=== PATIENT | male | born 1980 | race Caucasian/White ===

== ENCOUNTER 2019-04-22 07:36 | Day surgery (SDC) | payer BC ==
[2019-04-19 09:04] VITALS: BMI 32.2
[~2019-04-22 07:36] MED LIST: LACTATED RINGERS 1,000 ML IV SCH
[2019-04-22] MEDS ORDERED: LIDOCAINE 1% 20 ML VIAL (10MG/ML) FOR IV START INTRADERMA ONE (08:06)
[2019-04-22 08:08] VITALS: TEMP 97.3
[2019-04-22] MEDS ORDERED: PROPOFOL 10 MG/ML 20 ML VIAL IV ONE (08:30)
[2019-04-22] MEDS ORDERED: LIDOCAINE 1% INJ 10MG/ML (20 ML MDV) ONE (08:30)
--- NOTE | 2019-04-22 09:06 | P.PCN ---
Date of Procedure: 04/22/19 Description of Procedure: BRIEF HISTORY: 38-year-old male diagnosed with Crohn's disease at the age of [age] years old. Currently not on any medical treatment. He is requiring no surgeries in the past. Last colonoscopy was approximately in 2009. He reports currently 2 bowel movements on his continuous up to 8 bowel movements on his back disease. No blood per rectum reported. He does report abdominal pain. PROCEDURE PERFORMED: Colonoscopy . PREOPERATIVE DIAGNOSIS: Crohn's disease, last colonoscopy 2009. ESTIMATED BLOOD LOSS: Minimal. IV sedation per Anesthesia. PROCEDURE: After informed consent was obtained, the patient, was brought into the endoscopy unit. IV sedation was administered by Anesthesia under continuous monitoring. Digital rectal examination was normal. Initially the Olympus CF-190 flexible video colonoscope was then inserted in the rectum, gradually advanced into the cecum without any difficulty. Careful examination was performed as the scope was gradually being withdrawn. Ileocecal valve and the appendiceal orifice were visualized and appeared normal. Prep was excellent. A few small scattered sigmoid diverticula were noted. The patient had erythema with superficial ulcerations found from the descending colon to the cecum with mild colitis in the right colon and more [id number] colitis in the left colon. Terminal ileum was intubated and appeared normal. Random biopsies were taken from 80 cm to 10 cm from the anal verge. Retroflexion was performed in the rectum and no lesions were seen. The patient tolerated the procedure well. IMPRESSION: Mild to moderate chronic colitis noted from the ascending colon to the cecum. Random biopsies taken from 80 cm from the anal verge to 10 cm from the anal verge. Normal appearing terminal ileum, biopsied. Few small sigmoid diverticula. RECOMMENDATIONS: Findings of this examination were discussed with the patient in his father. Okay to resume diet. Await pathology from biopsies. Patient should follow-up with gastroenterology in 3-4 weeks. We'll start patient on steroid taper at t his time. Repeat colonoscopy in 2 years given history of Crohn's disease.
[2019-04-22 09:23] VITALS: BP 131/90; PULSE 74; RESP 18
== END 2019-04-22 09:53 | disposition home or self-care (01) ==
LOC: ORWHC2ENDO 07:36
PROVIDERS: ATTEND Internal Medicine
DX: K51.90 Ulcerative colitis, unspecified, without complications (principal); K50.90 Crohn's disease, unspecified, without complications; Z84.89 Family history of other specified conditions; Z88.5 Allergy status to narcotic agent
CPT/HCPCS: 88305; 45380; J2001; J2704

== ENCOUNTER 2023-07-13 12:25 | Emergency (ER) | payer BC ==
--- NOTE | 2023-07-13 13:46 | ED ---
Eye Problem HPI - General Source: patient, RN notes reviewed Mode of arrival: ambulatory Limitations: no limitations <Miguel Villasenor - Last Filed: 07/13/23 13:44> <Charles Arevalo - Last Filed: 07/13/23 14:22> - General Chief complaint: Eye Problems Stated complaint: right eye infection Time Seen by Provider: 07/13/23 13:44 - History of Present Illness Initial comments: 42-year-old male presents emergency Department with chief complaint of right eye problems. Patient states she started with some drainage and redness she was given ointment. He states he lost ointment follow-up PCP was placed on oral antibiotics is advised to come emergency Department if he did not have improvement after 48 hours. He states he was feeling better yesterday but worse this morning he did have initially of some crusting and drainage but that has resolved he states he has some discomfort with movement of his eyeand changes in vision (Miguel Villasenor) - Related Data Previous Rx's Medication Instructions Recorded Erythromycin Ophth Oint [Romycin 1 applic RIGHT EYE QID #3.5 gm 07/13/23 Ophth Oint] Sulfamethox-Tmp 800-160Mg [Bactrim 1 tab PO Q12HR 7 Days #14 tab 07/13/23 DS 800-160 mg] Allergies Allergy/AdvReac Type Severity Reaction Status Date / Time codeine Allergy Rash/Hives Verified 07/13/23 12:44 Review of Systems ROS Other: All systems not noted in ROS Statement are negative. <Miguel Villasenor - Last Filed: 07/13/23 13:44> ROS Other: All systems not noted in ROS Statement are negative. <Charles Arevalo - Last Filed: 07/13/23 14:22> ROS Statement: Those systems with pertinent positive or pertinent negative responses have been documented in the HPI. Past Medical History Past Medical History: Chest Pain / Angina, Hyperlipidemia, Sleep Apnea/CPAP/BIPAP Additional Past Medical History / Comment(s): hx migraines, crohn's, History of Any Multi-Drug Resistant Organisms: None Reported Past Surgical History: Orthopedic Surgery Additional Past Surgical History / Comment(s): colonoscopy, left knee arthroscopy Past Anesthesia/Blood Transfusion Reactions: Motion Sickness Past Psychological History: Anxiety Smoking Status: Never smoker Past Alcohol Use History: None Reported Past Drug Use History: None Reported - Past Family History Mother Family Medical History: Deep Vein Thrombosis (DVT) <Miguel Villasenor - Last Filed: 07/13/23 13:44> General Exam Limitations: no limitations <Miguel Villasenor - Last Filed: 07/13/23 13:44> - General Exam Comments Initial Comments: Visual Physical Exam Vital signs reviewed General: Well-appearing, nontoxic, no acute distress. Head: Normocephalic, atraumatic Eyes: PERRLA, EOMI ENT: Airway patent Chest: Nonlabored breathing Skin: No visual rash, normal skin tone Neuro: Alert and oriented 3 Musculoskeletal: No gross abnormalities (Miguel Villasenor) Course Vital Signs 07/13/23 12:42 Temperature 98.1 F Pulse Rate 90 Respiratory 16 Rate Blood Pressure 163/102 O2 Sat by Pulse 98 Oximetry Medical Decision Making <Miguel Villasenor - Last Filed: 07/13/23 13:44> <Charles Arevalo - Last Filed: 07/13/23 14:22> - Medical Decision Making I completed the quick note portion of this chart signed Miguel Villasenor PA-C (Miguel Villasenor) Was pt. sent in by a medical professional or institution ([facility], [facility], urgent care, hospital, or residential...) When possible be specific @ -No Did you speak to anyone other than the patient for history (EMS, parent, family, police, friend...)? What history was obtained from this source @ -No Did you review nursing and triage notes (agree or disagree)? Why? @ -I reviewed and agree with nursing and triage notes Were old charts reviewed (outside hosp., previous admission, EMS record, old EKG, old radiological studies, urgent care reports/EKG's, residential records)? Report findings @ -No old charts were reviewed Differential Diagnosis (chest pain, altered mental status, abdominal pain women, abdominal pain men, vaginal bleeding, weakness, fever, dyspnea, syncope, headache, dizziness, GI bleed, back pain, seizure, CVA, palpatations, mental health, musculoskeletal)? @ -Periorbital cellulitis, retro-orbital cellulitis, ocular foreign body, sty EKG interpreted by me (3pts min.). @ -As above X-rays interpreted by me (1pt min.). @ -None done CT interpreted by me (1pt min.). @ -None done U/S interpreted by me (1pt. min.). @ -None done What testing was considered but not performed or refused? (CT, X-rays, U/S, labs)? Why? @ -None What meds were considered but not given or refused? Why? @ -None Did you discuss the management of the patient with other professionals (professionals i.e. DrMary, PA, [employer], lab, RT, psych nurse, social security assessor, hearing impaired teacher, teacher, civil preparedness training officer, rn case mgr)? Give summary @ -No Was smoking cessation discussed for >3mins.? @ -No Was critical care preformed (if so, how long)? @ -No Were there social determinants of health that impacted care today? How? (Homelessness, low income, unemployed, alcoholism, drug addiction, transportation, low edu. Level, literacy, decrease access to med. care, prison, rehab)? @ -No Was there de-escalation of care discussed even if they declined (Discuss DNR or withdrawal of care, Hospice)? DNR status @ -No What co-morbidities impacted this encounter? (DM, HTN, Smoking, COPD, CAD, Cancer, CVA, ARF, Chemo, Hep., AIDS, mental health diagnosis, sleep apnea, morbid obesity)? @ -None Was patient admitted / discharged? Hospital course, mention meds given and route, prescriptions, significant lab abnormalities, going to OR and other pertinent info. @Patient has a erythematous raised lower lid stye which is internal. Remainder of the eye exam is unremarkable. Patient prescribed topical antibiotics as well as oral antibiotics and warm compresses. Patient will follow-up with ophthalmology. Undiagnosed new problem with uncertain prognosis? @ -No Drug Therapy requiring intensive monitoring for toxicity (Heparin, Nitro, Insulin, Cardizem)? @ -No Were any procedures done? @ -No Diagnosis/symptom? @ Internal hordeolum Acute, or Chronic, or Acute on Chronic? @ -Acute Uncomplicated (without systemic symptoms) or Complicated (systemic symptoms)? @ -default Side effects of treatment? @ -No Exacerbation, Progression, or Severe Exacerbation? @ -No Poses a threat to life or bodily function? How? (Chest pain, [place], [place], pneumonia, PE, COPD, DKA, ARF, appy, cholecystitis, CVA, Diverticulitis, Homicidal, Suicidal, threat to staff... and all critical care pts) @ -No (Charles Arevalo) Disposition <Miguel Villasenor - Last Filed: 07/13/23 13:44> Is patient prescribed a controlled substance at d/c from ED?: No Time of Disposition: 14:19 <Charles Arevalo - Last Filed: 07/13/23 14:22> Clinical Impression: Hordeolum internum Disposition: HOME SELF-CARE Condition: Good Instructions (If sedation given, give patient instructions): [facility] (ED) Additional Instructions: Please apply warm compress to the lower eyelid. Prescriptions: Sulfamethox-Tmp 800-160Mg [Bactrim DS 800-160 mg] 1 tab PO Q12HR 7 Days #14 tab Erythromycin Ophth Oint [Romycin Ophth Oint] 1 applic RIGHT EYE QID #3.5 gm Referrals: Annalisa Clement MD [Primary Care Provider] - 1-2 days Stephanie Barron MD [STAFF PHYSICIAN] - 1-2 days
[2023-07-13 14:58] VITALS: BP 168/119; PULSE 89; RESP 18; TEMP 98.2
== END 2023-07-13 14:42 | disposition home or self-care (01) ==
LOC: EC 12:25
DX: H00.022 Hordeolum internum right lower eyelid (principal); Z88.5 Allergy status to narcotic agent
CPT/HCPCS: 99283

== ENCOUNTER 2023-07-21 12:28 | Day surgery (SDC) | payer BC ==
[2023-07-21] MEDS ORDERED: LACTATED RINGERS 1,000 ML IV SCH (13:52)
[2023-07-21 14:16] VITALS: RESP 18; TEMP 97.9
[2023-07-21] MEDS ORDERED: PROPOFOL 10 MG/ML 20 ML VIAL IV ONE (14:54)
[2023-07-21] MEDS ORDERED: LIDOCAINE 1% INJ 10MG/ML (20 ML MDV) ONE (14:54)
--- NOTE | 2023-07-21 15:11 | P.PCN ---
Date of Procedure: 07/21/23 Procedure(s) Performed: BRIEF HISTORY: Patient is a 42-year-old pleasant white male scheduled for an elective colonoscopy as a part of surveillance of long-standing history of Crohn's colitis diagnosed at age 26. He is in clinical remission and is not on any maintenance medications. PROCEDURE PERFORMED: Colonoscopy with random biopsies. PREOPERATIVE DIAGNOSIS: Long-standing history of Crohn's colitis diagnosed at age 26. IV sedation per Anesthesia. PROCEDURE: After informed consent was obtained, the patient, was brought into the endoscopy unit. IV sedation was administered by Anesthesia under continuous monitoring. Digital rectal examination was normal. Initially the Olympus CF-160 flexible video colonoscope was then inserted in the rectum, gradually advanced into the cecum without any difficulty. Careful examination was performed as the scope was gradually being withdrawn. Ileocecal valve and the appendiceal orifice were visualized and appeared normal. Prep was excellent. Terminal ileum was intubated and 20 cm visualized appeared normal. Mucosa of the cecum, ascending colon, transverse colon, descending colon, sigmoid colon, and rectum appeared normal. Random biopsies a were done from the rectum to cecum and every 10 cm into well to rule out dysplasia .Retroflexion was performed in the rectum and no lesions were seen. The patient tolerated the procedure well. IMPRESSION: Normal-appearing colon from rectum to cecum with some colorectal neoplasia. RECOMMENDATIONS: Findings of this examination were discussed with the patient as well as his family. He was advised to follow with the biopsy results. If the biopsies do not show any evidence of dysplasia he can have a repeat colonoscopy in 2 years..
[2023-07-21 15:50] VITALS: BP 145/95; PULSE 77
== END 2023-07-21 15:43 | disposition home or self-care (01) ==
LOC: ORWHC2ENDO 12:28
PROVIDERS: ATTEND Internal Medicine Gastroenterology
DX: K50.10 Crohn's disease of large intestine without complications (principal); I10 Essential (primary) hypertension; E78.5 Hyperlipidemia, unspecified; J45.909 Unspecified asthma, uncomplicated; G47.33 Obstructive sleep apnea (adult) (pediatric); Z88.5 Allergy status to narcotic agent; Z79.899 Other long term (current) drug therapy; Z79.51 Long term (current) use of inhaled steroids
CPT/HCPCS: 88305; 45380; J2001; J2704

== ENCOUNTER 2024-02-03 11:59 | Observation (INO) | payer BC ==
--- NOTE | 2024-02-03 12:26 | ED ---
General Adult HPI - General Source: patient, RN/MD, RN notes reviewed Mode of arrival: ambulatory Limitations: no limitations <Seth Menendez - Last Filed: 02/03/24 14:54> <Charles Dutton - Last Filed: 02/03/24 16:24> - General Chief complaint: Chest Pain Stated complaint: Chest pain Time Seen by Provider: 02/03/24 12:17 - History of Present Illness Initial comments: Patient is a 43-year-old male present to the emergency department with concerns for chest discomfort. Onset was yesterday afternoon. Discomfort is rated 4- 5/10. Discomfort feels like pressure. There is mild associated dyspnea. No nausea. No diaphoresis. No history of similar symptoms previously. Patient was sent over from urgent care. (Seth Menendez) - Related Data Home Medications Medication Instructions Recorded Confirmed Acetaminophen Tab [Tylenol Tab] 1,000 mg PO Q6HR PRN 07/20/23 07/21/23 Albuterol Inhaler [Ventolin Hfa 2 inh INHALATION TID PRN 07/20/23 07/20/23 Inhaler] lisinopriL [Zestril] 10 mg PO DAILY 07/20/23 07/21/23 Allergies Allergy/AdvReac Type Severity Reaction Status Date / Time codeine Allergy Rash/Hives Verified 02/03/24 12:19 Review of Systems ROS Other: All systems not noted in ROS Statement are negative. Constitutional: Denies: chills Eyes: Denies: eye pain Respiratory: Reports: as per HPI Cardiovascular: Reports: chest pain Gastrointestinal: Denies: abdominal pain Musculoskeletal: Denies: back pain <Seth Menendez - Last Filed: 02/03/24 14:54> ROS Other: All systems not noted in ROS Statement are negative. <Charles Dutton - Last Filed: 02/03/24 16:24> ROS Statement: Those systems with pertinent positive or pertinent negative responses have been documented in the HPI. Past Medical History Past Medical History: Asthma, Chest Pain / Angina, Hyperlipidemia, Hypertension, Sleep Apnea/CPAP/BIPAP Additional Past Medical History / Comment(s): hx migraines, crohn's, chest pain determined to be asthma, Covid 2020, uses CPAP, Rt. eye infection 07/13/23 resolved now History of Any Multi-Drug Resistant Organisms: None Reported Past Surgical History: Orthopedic Surgery Additional Past Surgical History / Comment(s): colonoscopy, left knee arthroscopy Past Anesthesia/Blood Transfusion Reactions: No Reported Reaction, Motion Sickness Past Psychological History: Anxiety Smoking Status: Never smoker Past Alcohol Use History: None Reported Past Drug Use History: None Reported - Past Family History Mother Family Medical History: Deep Vein Thrombosis (DVT) <Seth Menendez Last Filed: 02/03/24 14:54> General Exam Limitations: no limitations General appearance: alert, in no apparent distress Head exam: Present: normocephalic Eye exam: Present: normal appearance Neck exam: Present: normal inspection Respiratory exam: Present: normal lung sounds bilaterally. Absent: chest wall tenderness Cardiovascular Exam: Present: regular rate, normal rhythm, normal heart sounds Expanded Peripheral pulses: 2+: Radial (R), Radial (L), Posterior Tibialis (R), Posterior Tibialis (L) GI/Abdominal exam: Present: soft. Absent: tenderness Extremities exam: Present: normal inspection. Absent: pedal edema, calf tenderness Neurological exam: Present: alert Psychiatric exam: Present: normal affect, normal mood Skin exam: Present: normal color <Seth Menendez - Last Filed: 02/03/24 14:54> Course Vital Signs 02/03/24 02/03/24 02/03/24 12:16 15:16 16:07 Temperature 98.1 F Pulse Rate 66 Pulse Rate [ 64 Broker ] Respiratory 18 Rate Blood Pressure 138/76 131/87 O2 Sat by Pulse 98 Oximetry EKG Findings - EKG Results: EKG: interpreted by ERMD, sinus rhythm, normal axis, normal QRS, normal ST/T <Seth Menendez - Last Filed: 02/03/24 14:54> Medical Decision Making - Lab Data Result diagrams: 02/03/24 14:36 <Seth Menendez - Last Filed: 02/03/24 14:54> - Lab Data Result diagrams: 02/03/24 14:36 02/03/24 14:36 <Charles Dutton - Last Filed: 02/03/24 16:24> - Medical Decision Making Was pt. sent in by a medical professional or institution (, PA, [employer], urgent care, hospital, or detention...) When possible be specific @ -Patient was sent over from [facility] for urgent care Did you speak to anyone other than the patient for history (EMS, parent, family, police, friend...)? What history was obtained from this source @ -I did speak with transferring physician Did you review nursing and triage notes (agree or disagree)? Why? @ -I reviewed and agree with nursing and triage notes Were old charts reviewed (outside hosp., previous admission, EMS record, old E KG, old radiological studies, urgent care reports/EKG's, detention records)? Report findings @ -EKG reviewed from [facility] urgent care Differential Diagnosis (chest pain, altered mental status, abdominal pain women, abdominal pain men, vaginal bleeding, weakness, fever, dyspnea, syncope, head ache, dizziness, GI bleed, back pain, seizure, CVA, palpatations, mental health, musculoskeletal)? @ -Differential Chest Pain: Stable Angina, Unstable Angina, STEMI, NSTEMI Aortic Dissection, Pneumothorax, Musculoskeletal, Esophageal Spasm GERD, Cholecystitis, Pancreatitis, Zoster, this is not meant to be an all-inclusive list. EKG interpreted by me (3pts min.). @ -As above X-rays interpreted by me (1pt min.). @ -Chest x-ray shows no acute process CT interpreted by me (1pt min.). @ -None done U/S interpreted by me (1pt. min.). @ -None done What testing was considered but not performed or refused? (CT, X-rays, U/S, labs)? Why? @ -None What meds were considered but not given or refused? Why? @ -None Did you discuss the management of the patient with other professionals (professionals i.e. , PA, [employer], lab, RT, psych nurse, case management social worker, nipping machine operator, teacher, law enforcement officer, test case developer)? Give summary @ -Case was discussed with Dr. Velez Was smoking cessation discussed for >3mins.? @ -No Was critical care preformed (if so, how long)? @ -No Were there social determinants of health that impacted care today? How? (Homelessness, low income, unemployed, alcoholism, drug addiction, transportation, low edu. Level, literacy, decrease access to med. care, usp, rehab)? @ -No Was there de-escalation of care discussed even if they declined (Discuss DNR or withdrawal of care, Hospice)? DNR status @ -No What co-morbidities impacted this encounter? (DM, HTN, Smoking, COPD, CAD, C ancer, CVA, ARF, Chemo, Hep., AIDS, mental health diagnosis, sleep apnea, morbid obesity)? @ -None Was patient admitted / discharged? Hospital course, mention meds given and route, prescriptions, significant lab abnormalities, going to OR and other pertinent info. @ -Hospital course Undiagnosed new problem with uncertain prognosis? @ -No Drug Therapy requiring intensive monitoring for toxicity (Heparin, Nitro, Insulin, Cardizem)? @ -No Were any procedures done? @ -No Diagnosis/symptom? @ -Default Acute, or Chronic, or Acute on Chronic? @ -Default Uncomplicated (without systemic symptoms) or Complicated (systemic symptoms)? @ -Default Side effects of treatment? @ -No Exacerbation, Progression, or Severe Exacerbation? @ -No Poses a threat to life or bodily function? How? (Chest pain, [place], [place], pneumonia, PE, COPD, DKA, ARF, appy, cholecystitis, CVA, Diverticulitis, Homicidal, Suic idal, threat to staff... and all critical care pts) @ -No (Seth Menendez) The patient has been endorsed to me by Dr. Menendez at her shift change pending lab work and x-rays. The lab work is essentially within normal limits chest x-ray is unremarkable as interpreted by me. 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 He has no reproducible pain at this time. Lungs are clear heart regular with no evidence of any abnormalities on clinical examination by me. Patient will be admitted Dr. Velez was contacted by Dr. Menendez prior to my arrival. Cardiology will be consulted. Was pt. sent in by a medical professional or institution (, PA, [employer], urgent care, hospital, or detention...) When possible be specific @ -No Did you speak to anyone other than the patient for history (EMS, parent, family, police, friend...)? What history was obtained from this source @ -No Did you review nursing and triage notes (agree or disagree)? Why? @ -I reviewed and agree with nursing and triage notes Were old charts reviewed (outside hosp., previous admission, EMS record, old EKG, old radiological studies, urgent care reports/EKG's, detention records)? Report findings @ -No old charts were reviewed Differential Diagnosis (chest pain, altered mental status, abdominal pain women, abdominal pain men, vaginal bleeding, weakness, fever, dyspnea, syncope, headache, dizziness, GI bleed, back pain, seizure, CVA, palpatations, mental health, musculoskeletal)? @ -Not applicable EKG interpreted by me (3pts min.). @ -As above X-rays interpreted by me (1pt min.). @ -None done CT interpreted by me (1pt min.). @ -None done U/S interpreted by me (1pt. min.). @ -None done What testing was considered but not performed or refused? (CT, X-rays, U/S, labs)? Why? @ -None What meds were considered but not given or refused? Why? @ -None Did you discuss the management of the patient with other professionals (professionals i.e. , PA, [employer], lab, RT, psych nurse, case management social worker, nipping machine operator, teacher, law enforcement officer, test case developer)? Give summary @ -Dr. Velez by Dr. Menendez Was smoking cessation discussed for >3mins.? @ -No patient is a non-smoker Was critical care preformed (if so, how long)? @ -No Were there social determinants of health that impacted care today? How? (Homelessness, low income, unemployed, alcoholism, drug addiction, transportation, low edu. Level, literacy, decrease access to med. care, usp, rehab)? @ -No Was there de-escalation of care discussed even if they declined (Discuss DNR or withdrawal of care, Hospice)? DNR status @ -No What co-morbidities impacted this encounter? (DM, HTN, Smoking, COPD, CAD, Cancer, CVA, ARF, Chemo, Hep., AIDS, mental health diagnosis, sleep apnea, morbid obesity)? @ -None Crohn's disease post COVID asthma, hypertension, no history of known heart disease. Was patient admitted / discharged? Hospital course, mention meds given and route, prescriptions, significant lab abnormalities, going to OR and other pertinent info. @ -Hospital course Undiagnosed new problem with uncertain prognosis? @ -No Drug Therapy requiring intensive monitoring for toxicity (Heparin, Nitro, Insulin, Cardizem)? @ -No Were any procedures done? @ -No Diagnosis/symptom? @ -Acute chest pain, ACS Acute, or Chronic, or Acute on Chronic? @ -Acute Uncomplicated (without systemic symptoms) or Complicated (systemic symptoms)? @ -Complicated Side effects of treatment? @ -No Exacerbation, Progression, or Severe Exacerbation? @ -No Poses a threat to life or bodily function? How? (Chest pain, [place], [place], pneumonia, PE, COPD, DKA, ARF, appy, cholecystitis, CVA, Diverticulitis, Homicidal, Suicidal, threat to staff... and all critical care pts) @ -Potential (Charles Dutton) - Lab Data Lab Results 02/03/24 02/03/24 02/03/24 Range/Units 14:36 14:36 14:36 WBC 7.4 (3.8-10.6) k/uL RBC 5.02 (4.30-5.90) m/uL Hgb 15.3 (13.0-17.5) gm/dL Hct 43.3 (39.0-53.0) % MCV 86.3 (80.0-100.0) fL MCH 30.5 (25.0-35.0) pg MCHC 35.3 (31.0-37.0) g/dL RDW 13.4 (11.5-15.5) % Plt Count 194 (150-450) k/uL MPV 8.4 Neutrophils % 61 % Lymphocytes % 28 % Monocytes % 6 % Eosinophils % 2 % Basophils % 0 % Neutrophils # 4.5 (1.3-7.7) k/uL Lymphocytes # 2.0 (1.0-4.8) k/uL Monocytes # 0.5 (0-1.0) k/uL Eosinophils # 0.2 (0-0.7) k/uL Basophils # 0.0 (0-0.2) k/uL PT 10.4 (10.0-12.5) sec INR 0.9 (<1.2) APTT 24.8 (22.0-30.0) sec D-Dimer 0.37 (<0.60) mg/L FEU Sodium 138 (137-145) mmol/L Potassium 4.1 (3.5-5.1) mmol/L Chloride 108 H (98-107) mmol/L Carbon Dioxide 22 (22-30) mmol/L Anion Gap 8 mmol/L BUN 21 H (9-20) mg/dL Creatinine 0.76 (0.66-1.25) mg/dL Est GFR (CKD-EPI)AfAm >90 (>60 ml/min/1.73 sqM) Est GFR (CKD-EPI)NonAf >90 (>60 ml/min/1.73 sqM) Glucose 88 (74-99) mg/dL Calcium 9.4 (8.4-10.2) mg/dL Magnesium 1.9 (1.6-2.3) mg/dL Total Bilirubin 0.8 (0.2-1.3) mg/dL AST 24 (17-59) U/L ALT 29 (4-49) U/L Alkaline Phosphatase 80 (38-126) U/L Troponin I (0.000-0.034) ng/mL NT-Pro-B Natriuret Pep <20 pg/mL Total Protein 7.2 (6.3-8.2) g/dL Albumin 4.4 (3.5-5.0) g/dL 02/03/24 Range/Units 14:36 WBC (3.8-10.6) k/uL RBC (4.30-5.90) m/uL Hgb (13.0-17.5) gm/dL Hct (39.0-53.0) % MCV (80.0-100.0) fL MCH (25.0-35.0) pg MCHC (31.0-37.0) g/dL RDW (11.5-15.5) % Plt Count (150-450) k/uL MPV Neutrophils % % Lymphocytes % % Monocytes % % Eosinophils % % Basophils % % Neutrophils # (1.3-7.7) k/uL Lymphocytes # (1.0-4.8) k/uL Monocytes # (0-1.0) k/uL Eosinophils # (0-0.7) k/uL Basophils # (0-0.2) k/uL PT (10.0-12.5) sec INR (<1.2) APTT (22.0-30.0) sec D-Dimer (<0.60) mg/L FEU Sodium (137-145) mmol/L Potassium (3.5-5.1) mmol/L Chloride (98-107) mmol/L Carbon Dioxide (22-30) mmol/L Anion Gap mmol/L BUN (9-20) mg/dL Creatinine (0.66-1.25) mg/dL Est GFR (CKD-EPI)AfAm (>60 ml/min/1.73 sqM) Est GFR (CKD-EPI)NonAf (>60 ml/min/1.73 sqM) Glucose (74-99) mg/dL Calcium (8.4-10.2) mg/dL Magnesium (1.6-2.3) mg/dL Total Bilirubin (0.2-1.3) mg/dL AST (17-59) U/L ALT (4-49) U/L Alkaline Phosphatase (38-126) U/L Troponin I <0.012 (0.000-0.034) ng/mL NT-Pro-B Natriuret Pep pg/mL Total Protein (6.3-8.2) g/dL Albumin (3.5-5.0) g/dL Disposition <Seth Menendez - Last Filed: 02/03/24 14:54> Time of Disposition: 15:30 Decision Date: 02/03/24 Decision Time: 15:30 <Charles Dutton - Last Filed: 02/03/24 16:24> Clinical Impression: Chest pain, ACS (acute coronary syndrome) Disposition: ADMITTED IP TO THIS HOSP Condition: Stable Referrals: Annalisa Clement MD [Primary Care Provider] - 1-2 days
--- NOTE | 2024-02-03 13:25 | XR ---
EXAMINATION TYPE: XR chest 2V DATE OF EXAM: 02/03/2024 COMPARISON: None INDICATION: Chest pain TECHNIQUE: Frontal and lateral views of the chest are obtained. FINDINGS: The heart size is normal. The pulmonary vasculature is normal. The lungs are clear. IMPRESSION: 1. No acute pulmonary process.
[2024-02-03 14:49] LABS: Basophils % (A) 0 %; Eosinophils # (A) 0.2 k/uL (0-0.7); Eosinophils % (A) 2 %; HCT 43.3 % (39.0-53.0); HGB 15.3 gm/dL (13.0-17.5); Lymphocytes % (A) 28 %; MCH 30.5 pg (25.0-35.0); MCHC 35.3 g/dL (31.0-37.0); MCV 86.3 fL (80.0-100.0); Mean Platelet Volume 8.4; Monocytes # (A) 0.5 k/uL (0-1.0); Monocytes % (A) 6 %; Neutrophils # (A) 4.5 k/uL (1.3-7.7); Neutrophils % (A) 61 %; Platelet Count 194 k/uL (150-450); RBC 5.02 m/uL (4.30-5.90); RDW 13.4 % (11.5-15.5); WBC 7.4 k/uL (3.8-10.6)
[2024-02-03 15:05] LABS: ALT 29 U/L (4-49); AST 24 U/L (17-59); African American GFR (CKD) >90 (>60 ml/min/1.73 sqM); Albumin 4.4 g/dL (3.5-5.0); Alkaline Phosphatase 80 U/L (38-126); Anion Gap 8 mmol/L; Blood Urea Nitrogen 21 mg/dL (9-20); Calcium 9.4 mg/dL (8.4-10.2); Carbon Dioxide 22 mmol/L (22-30); Chloride 108 mmol/L (98-107); Glucose 88 mg/dL (74-99); Magnesium 1.9 mg/dL (1.6-2.3); Non-African American GFR(CKD) >90 (>60 ml/min/1.73 sqM); Potassium 4.1 mmol/L (3.5-5.1); Sodium 138 mmol/L (137-145); Total Bilirubin 0.8 mg/dL (0.2-1.3); Total Protein 7.2 g/dL (6.3-8.2)
[2024-02-03 15:08] LABS: INR 0.9 (<1.2); Partial Thromboplastin Time 24.8 sec (22.0-30.0); Prothrombin Time 10.4 sec (10.0-12.5)
[2024-02-03 15:12] LABS: NT-Pro-B-Type Natriuretic Pept <20 pg/mL
[2024-02-03] MEDS: NITROGLYCERIN OINT 1 INCH/GM PACKET TOPICAL STA (15:17)
[2024-02-03] MEDS: ASPIRIN 81 MG PO STA (15:19)
[2024-02-03] MEDS ORDERED: NITROGLYCERIN SL TABS 0.4 MG TAB SUBLINGUAL PRN (16:24)
[2024-02-03] MEDS ORDERED: ALBUTEROL HFA INHALER INHALATION PRN (16:26)
[2024-02-03] MEDS ORDERED: ACETAMINOPHEN TAB 500 MG TAB PO PRN (16:26)
--- NOTE | 2024-02-04 00:07 | P.HPIM ---
History of Present Illness H&P Date: 02/03/24 Chief Complaint: Chest pain 43-year-old male, history of hypertension, hyperlipidemia, TIA/CVA, COPD, osteoarthritis, present to the emergency department with concerns for chest discomfort. Onset was yesterday afternoon. Discomfort is rated 4-5/10. Discomfort feels like pressure. There is mild associated dyspnea. No nausea. No diaphoresis. No history of similar symptoms previously. Patient was sent over from urgent care. Blood work completed in ED reveals a WBC of 7.4, hemoglobin of 15.3 and platelet count of 194, PT 10.4 D-dimer of 0.37, sodium 138, potassium 4.1, BUNs/creatinine of 21/0.76, magnesium 1.9 troponin is less than 0.012 BNP less than 20 Chest x-ray is negative for any acute process EKG does not reveal any acute ST or T wave changes Review of Systems REVIEW OF SYSTEMS: CONSTITUTIONAL: No fever, no malaise, no fatigue. HEENT: No recent visual problems or hearing problems. Denied any sore throat. CARDIOVASCULAR: No chest pain, orthopnea, PND, no palpitations, no syncope. PULMONARY: No shortness of breath, no cough, no hemoptysis. GASTROINTESTINAL: No diarrhea, no nausea, no vomiting, no abdominal pain. NEUROLOGICAL: No headaches, no weakness, no numbness. HEMATOLOGICAL: Denies any bleeding or petechiae. GENITOURINARY: Denies any burning micturition, frequency, or urgency. MUSCULOSKELETAL/RHEUMATOLOGICAL: Denies any joint pain, swelling, or any muscle pain. ENDOCRINE: Denies any polyuria or polydipsia. The rest of the 14-point review of systems is negative. Past Medical History Past Medical History: Asthma, Chest Pain / Angina, Hyperlipidemia, Hypertension, Sleep Apnea/CPAP/BIPAP Additional Past Medical History / Comment(s): hx migraines, crohn's, chest pain determined to be asthma, Covid 2020, uses CPAP, Rt. eye infection 07/13/23 resolved now History of Any Multi-Drug Resistant Organisms: None Reported Past Surgical History: Orthopedic Surgery Additional Past Surgical History / Comment(s): colonoscopy, left knee arthroscopy Past Anesthesia/Blood Transfusion Reactions: No Reported Reaction, Motion Sickness Past Psychological History: Anxiety Smoking Status: Never smoker Past Alcohol Use History: None Reported Past Drug Use History: None Reported - Past Family History Mother Family Medical History: Deep Vein Thrombosis (DVT) Medications and Allergies Home Medications Medication Instructions Recorded Confirmed Type lisinopriL [Zestril] 10 mg PO HS 07/20/23 02/03/24 History Allergies Allergy/AdvReac Type Severity Reaction Status Date / Time codeine Allergy Unknown Verified 02/03/24 17:49 Childhood Physical Exam Vitals: Vital Signs Temp Pulse Pulse Resp BP Pulse Ox 02/03/24 16:07 64 02/03/24 15:16 131/87 02/03/24 12:16 98.1 F 66 18 138/76 98 Intake and Output 02/03/24 02/03/24 02/03/24 06:59 14:59 22:59 Other: Weight 95.254 kg General appearance: Present: average body habitus, cooperative, no acute distress Eyes: Present: anicteric sclerae, EOMI, PERRLA, normal appearance Neck: Present: normal ROM. Absent: lymphadenopathy, rigidity, thyromegaly Carotids: negative: bruit present Thyroid: bilateral: normal size, negative: enlarged, nodule Respiratory: bilateral: CTA, negative: rales, rhonchi, wheezing Cardiovascular: regular: normal: S1, S2 Gastrointestinal: normal bowel sounds, soft. Absent: distended, organomegaly, tenderness Genitourinary Comment(s): deferred Integumentary: Present: normal turgor. Absent: jaundiced, rash, ulcer Neurologic: Present: CNII-XII intact. Absent: focal deficits Musculoskeletal: Present: gait normal, strength equal bilaterally Psychiatric: Present: A&O x's 3, appropriate affect, intact judgment & insight Results CBC & Chem 7: 02/03/24 14:36 02/03/24 14:36 Labs: Abnormal Lab Results - Last 24 Hours (Table) 02/03/24 Range/Units 14:36 Chloride 108 H (98-107) mmol/L BUN 21 H (9-20) mg/dL Assessment and Plan Assessment: 1. Chest pain rule out acute coronary syndrome --Patient will be admitted to telemetry; monitor EKG and trend troponin -- Patient has been placed on aspirin 81 mg daily along with nitroglycerin paste 2. Hypertension; Zestril 10 mg daily 3. Obesity; patient educated on need for weight reduction DVT prophylaxis; SCDs CODE STATUS; full code
[2024-02-04] MEDS: ASPIRIN 325 MG TAB PO SCH (08:27)
[2024-02-04] MEDS: lisinopriL 10 MG TAB PO SCH (08:27)
[2024-02-04 09:21] LABS: Chol/HDL Ratio 6.96 Ratio; HDL Cholesterol 31.2 mg/dL (40.00-60.00); VLDL Calculation 97.4 mg/dL (5.00-40.00)
--- NOTE | 2024-02-04 11:11 | P.CRDCN ---
History of Present Illness Consult date: 02/04/24 Requesting physician: Siva Wahl Reason for Consult (text): chest pain Chief complaint: chest pressure, dizziness, headache History of present illness: This is a pleasant 43-year-old gentleman with a past medical history of hypertension currently treated with lisinopril and well-controlled, prior history of hyperlipidemia but not currently on treatment, and history of Crohn's. He has no history of diabetes and no family history of CAD. 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 He presented with complaints of chest pressure. He does have a history of headache and dizziness at times that has been chronic on and off for some time and he is following with his primary care physician in this regard. At work Monday he was pulling some heavy wire through a bent pipe and started feeling his headache and dizziness after this. He also felt some pressure in his chest that went away and subsequently returned when he went to bed Monday night and was persistent yesterday morning. He was initially seen in urgent care but recommended to come to the emergency department for further sugar luation. He continues to have the discomfort on and off at times while he is resting on the stretcher other times when he is getting up to go to the bathroom. EKG and cardiac enzymes have been unremarkable. Blood pressure has been well-controlled. He denies any shortness of breath, palpitations or syncope. He has had no orthopnea, PND or edema. Past Medical History Past Medical History: Asthma, Chest Pain / Angina, Hyperlipidemia, Hypertension, Sleep Apnea/CPAP/BIPAP Additional Past Medical History / Comment(s): hx migraines, crohn's, chest pain determined to be asthma, Covid 2020, uses CPAP, Rt. eye infection 07/13/23 re solved now History of Any Multi-Drug Resistant Organisms: None Reported Past Surgical History: Orthopedic Surgery Additional Past Surgical History / Comment(s): colonoscopy, left knee arthroscopy Past Anesthesia/Blood Transfusion Reactions: No Reported Reaction, Motion Sickness Past Psychological History: Anxiety Additional Psychological History / Comment(s): panic attack few years ago Smoking Status: Never smoker Past Alcohol Use History: None Reported Past Drug Use History: None Reported - Past Family History Mother Family Medical History: Deep Vein Thrombosis (DVT) Medications and Allergies Home Medications Medication Instructions Recorded Confirmed Type lisinopriL [Zestril] 10 mg PO HS 07/20/23 02/03/24 History Allergies Allergy/AdvReac Type Severity Reaction Status Date / Time codeine Allergy Unknown Verified 02/03/24 17:49 Childhood Physical Exam Vitals: Vital Signs Temp Pulse Pulse Resp BP BP Pulse Ox 02/04/24 10:12 97.7 F 67 16 104/72 97 02/04/24 07:50 98.3 F 70 18 129/94 97 02/04/24 07:00 97.8 F 78 16 131/84 97 02/04/24 06:09 84 18 124/99 96 02/04/24 00:44 91 18 116/84 99 02/03/24 20:00 70 18 152/101 99 02/03/24 16:07 64 02/03/24 15:16 131/87 02/03/24 12:16 98.1 F 66 18 138/76 98 Intake and Output 02/03/24 02/04/24 02/04/24 22:59 06:59 14:59 Other: Weight 95.254 kg PHYSICAL EXAMINATION: This is a 43-year-old woman in no apparent distress at the time of my examination. VITAL SIGNS: Reviewed. HEENT: Head is atraumatic, normocephalic. Pupils are equal, round. Sclerae anicteric. Conjunctivae are clear. Mucous membranes of the mouth are moist. Neck is supple. There is no elevated jugular venous pressure. No carotid bruit is heard. CHEST EXAMINATION: Clear to auscultation bilaterally. No wheezes rales or rhonchi. Respirations even and nonlabored. HEART EXAMINATION: Heart regular, positive S1 and S2. No S3. No S4. No clicks, rubs or murmurs. ABDOMEN: Soft, nontender. Bowel sounds are heard. No organomegaly noted. EXTREMITIES: 2+ peripheral pulses with no evidence of peripheral edema and no calf tenderness noted. NEUROLOGIC EXAMINATION: Patient is awake, alert and oriented x3. Results 02/03/24 14:36 02/03/24 14:36 Cardiac Enzymes 02/03/24 02/03/24 02/03/24 Range/Units 14:36 14:36 18:11 AST 24 (17-59) U/L Troponin I <0.012 <0.012 (0.000-0.034) ng/mL 02/03/24 Range/Units 20:52 AST (17-59) U/L Troponin I <0.012 (0.000-0.034) ng/mL Coagulation 02/03/24 Range/Units 14:36 PT 10.4 (10.0-12.5) sec APTT 24.8 (22.0-30.0) sec Lipids 02/04/24 Range/Units 05:47 Triglycerides 487.00 H (0.00-149.00) mg/dL Cholesterol 217.00 H (0.00-200.00) mg/dL HDL Cholesterol 31.20 L (40.00-60.00) mg/dL Cholesterol/HDL Ratio 6.96 Ratio CBC 02/03/24 Range/Units 14:36 WBC 7.4 (3.8-10.6) k/uL RBC 5.02 (4.30-5.90) m/uL Hgb 15.3 (13.0-17.5) gm/dL Hct 43.3 (39.0-53.0) % Plt Count 194 (150-450) k/uL Comprehensive Metabolic Panel 02/03/24 Range/Units 14:36 Sodium 138 (137-145) mmol/L Potassium 4.1 (3.5-5.1) mmol/L Chloride 108 H (98-107) mmol/L Carbon Dioxide 22 (22-30) mmol/L BUN 21 H (9-20) mg/dL Creatinine 0.76 (0.66-1.25) mg/dL Glucose 88 (74-99) mg/dL Calcium 9.4 (8.4-10.2) mg/dL AST 24 (17-59) U/L ALT 29 (4-49) U/L Alkaline Phosphatase 80 (38-126) U/L Total Protein 7.2 (6.3-8.2) g/dL Albumin 4.4 (3.5-5.0) g/dL Current Medications Generic Name Dose Route Start Last Admin Trade Name Freq PRN Reason Stop Dose Admin Acetaminophen 1,000 mg 02/03/24 16:26 Acetaminophen Tab 500 Mg Tab PO Q6HR PRN Pain Albuterol Sulfate 2 puff 02/03/24 16:26 Albuterol Hfa Inhaler INHALATION TID PRN Shortness Of Breath Or Wheezing Aspirin 325 mg 02/04/24 09:00 02/04/24 08:27 Aspirin 325 Mg Tab PO 325 mg DAILY ALBERT Administration Lisinopril 10 mg 02/04/24 09:00 02/04/24 08:27 Lisinopril 10 Mg Tab PO 10 mg DAILY ALBERT Administration Nitroglycerin 0.4 mg 02/03/24 16:24 Nitroglycerin Sl Tabs 0.4 Mg Tab SUBLINGUAL Q5M PRN Chest Pain Intake and Output 02/03/24 02/04/24 02/04/24 22:59 06:59 14:59 Other: Weight 95.254 kg 02/03/24 14:36 02/03/24 14:36 EKG Interpretations (text) Sinus rhythm Assessment and Plan Assessment: #1 symptoms of chest pressure, acute coronary event has been ruled out #2 hypertension #3 headache and dizziness, chronic #4 prior history of hyperlipidemia not currently on treatment #5 history of Crohn's Plan: From cardiology's perspective we will decrease aspirin to 81 mg daily. Check lipid panel. We will obtain a 2D echo with Doppler study to assess cardiac structure and function as well as a stress echocardiogram in the morning. Further recommendations to follow. UNIT AIDE note has been reviewed, I agree with a documented findings and plan of care. Patient was seen and examined.
[2024-02-04 19:35] VITALS: RESP 16
[2024-02-05 08:37] VITALS: BP 125/86; PULSE 71; TEMP 98.4
--- NOTE | 2024-02-05 10:02 | P.PN ---
Subjective Progress Note Date: 02/05/24 Chief complaint: chest pressure, dizziness, headache History of present illness: This is a pleasant 43-year-old gentleman with a past medical history of hy pertension currently treated with lisinopril and well-controlled, prior history of hyperlipidemia but not currently on treatment, and history of Crohn's. He has no history of diabetes and no family history of CAD. He does not follow with a medication aide. He presented with complaints of chest pressure. He does have a history of headache and dizziness at times that has been chronic on and off for some time and he is following with his primary care physician in this regard. At work Monday he was pulling some heavy wire through a bent pipe and started feeling his headache and dizziness after this. He also felt some pressure in his chest that went away and subsequently returned when he went to bed Monday night and was persistent yesterday morning. He was initially seen in urgent care but recommended to come to the emergency department for further evaluation. He continues to have the discomfort on and off at times while he is resting on the stretcher other times when he is getting up to go to the bathroom. EKG and cardiac enzymes have been unremarkable. Blood pressure has been well-controlled. He denies any shortness of breath, palpitations or syncope. He has had no orthopnea, PND or edema. 02/04 Patient is seen today in follow-up in the stress lab. Patient is scheduled for stress echocardiogram today. Patient does have some midsternal to the left shoulder chest discomfort. He states it is worse with deep breathing. No tenderness to the chest wall. Blood pressure 125/86, heart rate 71, pulse ox 98% on room air. Triglycerides 487, cholesterol 217. HDL 31 and LDL 115. PHYSICAL EXAMINATION: This is a 43-year-old man in no apparent distress at the time of my examination. VITAL SIGNS: Reviewed. HEENT: Head is atraumatic, normocephalic. Pupils are equal, round. Sclerae anicteric. Conjunctivae are clear. Mucous membranes of the mouth are moist. Neck is supple. There is no elevated jugular venous pressure. No carotid bruit is heard. CHEST EXAMINATION: Clear to auscultation bilaterally. No wheezes rales or rhonchi. Respirations even and nonlabored. HEART EXAMINATION: Heart regular, positive S1 and S2. No S3. No S4. No clicks, rubs or murmurs. ABDOMEN: Soft, nontender. Bowel sounds are heard. No organomegaly noted. EXTREMITIES: 2+ peripheral pulses with no evidence of peripheral edema and no calf tenderness noted. NEUROLOGIC EXAMINATION: Patient is awake, alert and oriented x3. Assessment: #1 symptoms of chest pressure, acute coronary event has been ruled out #2 hypertension #3 headache and dizziness, chronic #4 prior history of hyperlipidemia not currently on treatment #5 history of Crohn's Plan: From cardiology's perspective we will decrease aspirin to 81 mg daily. We will obtain a 2D echo with Doppler study to assess cardiac structure and function as well as a stress echocardiogram If testing is unremarkable, patient is cleared for discharge from cardiology. Nurse practitioner note has been reviewed, I agree with documented findings and plan of care. Patient was seen and examined. Objective - Vital Signs Vital signs: Vital Signs Temp 98.4 F 02/05/24 07:00 Pulse 71 02/05/24 07:00 Resp 16 02/05/24 07:00 BP 125/86 02/05/24 07:00 Pulse Ox 98 02/05/24 07:00 FiO2 Intake & Output 02/04/24 02/05/24 02/05/24 18:59 06:59 18:59 Weight 95.254 kg Other: # Voids 2 1 - Labs CBC & Chem 7: 02/03/24 14:36 02/03/24 14:36
[2024-02-05] MEDS: ASPIRIN 81 MG PO SCH (10:30)
--- NOTE | 2024-02-05 11:50 | CA ---
Stress Echo Report Pan Naqvi Age: 43 Gender: M : 1980 Exam Date: 02/05/2024 09:54 Exam Location: [place] Stress Ht (in): 68 Wt (lb): 210 Ordering Physician: Rema Hines Referring Physician: [id number] Roach Equity Trader: MANISH Technologist Procedure CPT: Indication: chest pressure ICD-9 Codes: Rhythm: Patient History: Cardiac Medications: LISINOPRIL Medications in past 24 hours: Contrast: N/A Stress Results Protocol: Romario Total dose(mL): NA Exercise Duration (min:sec): 10:[address] Depression (mm): Angina Score: An Score: METS: 12.1 Resting HR: 98 Resting BP: 128 / 88 Peak HR: 178 Peak BP: 200 / 81 Max Predicted HR: 177 101 % Max Predicted HR Target HR: 150 Double Product: [id number] Stress Summary: Patient exercised on Romario protocol for 10 minutes 31 seconds achieving 12.1 METS. Patient did not encounter any chest pain chest pressure during the treadmill exercise protocol BP Response: Reason for Termination: MAX EXERTION/TARGET HR Cardiac Symptoms: NO SYMPTOMS ECG Analysis Resting ECG: Normal sinus rhythm, normal axis, heart rate 83 beats per Stress ECG: There were no significant ST or T wave changes that are diagnostic for ischemia by ST segment analysis Arrhythmia: There were no sustained arrhythmias or ectopic beats noted during the stress Echo Analysis Resting Echo: There is normal global and segmental systolic function. There is no resting regional wall motion abnormality Peak Echo Analysis: There is normal global and segmental augmentation of systolic function. There is no stress-induced regional wall motion abnormality MEASUREMENTS (Male/Female) Normal Values CONCLUSIONS Nonischemic ECG and echocardiographic response to treadmill exercise Good exercise tolerance for age achieving 12.1 METS Normal clinical and hemodynamic response to treadmill exercise Overall normal treadmill echo stress Dr Jaime Sue (Electronically Signed) Final Date: 05 February 2024 11:49
--- NOTE | 2024-02-05 11:52 | CA ---
Transthoracic Echo Report Name: Pan Naqvi Age: 43 Gender: M : 1980 Exam Date: 02/05/2024 08:08 Exam Location: [place] Echo Ht (in): 68 Wt (lb): 210 Ordering Physician: Charles Dutton MD Attending/Referring Phys: Nursing Home Director Senait Jeffries RDCS Procedure CPT: Indications: Chest Pain Cardiac Hx: Technical Quality: Fair Contrast 1: Total Dose (mL): Contrast 2: Total Dose (mL): MEASUREMENTS (Male / Female) Normal Values 2D ECHO LV Diastolic Diameter PLAX 4.1 cm 4.2 - 5.9 / 3.9 - 5.3 cm LV Systolic Diameter PLAX 2.6 cm IVS Diastolic Thickness 1.4 cm 0.6 - 1.0 / 0.6 - 0.9 cm LVPW Diastolic Thickness 1.3 cm 0.6 - 1.0 / 0.6 - 0.9 cm LV Relative Wall Thickness 0.7 RV Internal Dim ED PLAX 3.0 cm LA Volume 40.3 cm??? 18 - 58 / 22 - 52 cm??? LA Volume Index 18.6 cm???/m??? 16 - 28 cm???/m??? M-MODE Aortic Root Diameter MM 3.0 cm LA Systolic Diameter MM 3.6 cm LA Ao Ratio MM 1.2 AV Cusp Separation MM 1.9 cm DOPPLER AV Peak Velocity 130.1 cm/s AV Peak Gradient 6.8 mmHg AV Mean Velocity 94.8 cm/s AV Mean Gradient 3.9 mmHg AV Velocity Time Integral 27.4 cm LVOT Peak Velocity 110.0 cm/s LVOT Peak Gradient 4.8 mmHg LVOT Velocity Time Integral 20.6 cm MV Area PHT 3.3 cm??? Mitral E Point Velocity 61.3 cm/s Mitral A Point Velocity 79.4 cm/s Mitral E to A Ratio 0.8 MV Deceleration Time 233.3 ms MV E' Velocity 4.6 cm/s Mitral E to MV E' Ratio 13.2 TR Peak Velocity 155.4 cm/s TR Peak Gradient 9.7 mmHg Right Ventricular Systolic Press 14.7 mmHg FINDINGS Left Ventricle Moderately increased left ventricular wall thickness. Left ventricular cavity size normal. Normal left ventricular systolic function with no obvious regional wall motion abnormalities. Left ventricular ejection fraction is estimated at 55-60 %. Right Ventricle Normal right ventricular size and function. Right ventricular systolic pressure within normal limits. Right Atrium Normal right atrial size. Left Atrium Normal left atrial size. Mitral Valve Structurally normal mitral valve. Mild mitral annular calcification. Mild mitral regurgitation. Aortic Valve Trileaflet aortic valve. No aortic valve stenosis or regurgitation. Tricuspid Valve Structurally normal tricuspid valve. Mild tricuspid regurgitation. Pulmonic Valve Structurally normal pulmonic valve. Trace pulmonic regurgitation. Pericardium No pericardial effusion. Aorta Normal size aortic root and proximal ascending aorta. CONCLUSIONS Normal LV size and systolic function with LVEF 55 to 60% Moderate concentric LVH No obvious regional wall motion abnormality No significant chamber size abnormality Mild valvular calcification. No significant valvular dysfunction RVSP estimated less than 25 mmHg Previewed by: Dr Jaime Sue (Electronically Signed) Final Date: 05 February 2024 11:51
--- NOTE | 2024-02-05 14:13 | P.PN ---
Subjective Progress Note Date: 02/04/24 43-year-old male, history of hypertension, hyperlipidemia, TIA/CVA, COPD, osteoarthritis, present to the emergency department with concerns for chest discomfort. Onset was yesterday afternoon. Discomfort is rated 4-5/10. Discomfort feels like pressure. There is mild associated dyspnea. No nausea. No diaphoresis. No history of similar symptoms previously. Patient was sent over from urgent care. Blood work completed in ED reveals a WBC of 7.4, hemoglobin of 15.3 and platelet count of 194, PT 10.4 D-dimer of 0.37, sodium 138, potassium 4.1, BUNs/creatinine of 21/0.76, magnesium 1.9 troponin is less than 0.012 BNP less than 20 Chest x-ray is negative for any acute process EKG does not reveal any acute ST or T wave changes 24-hour interval change 02/04/2024 Patient is seen and evaluated in room at bedside; vital signs are reviewed and remained stable Reports no further complaint of chest pain Patient has been evaluated by cardiology; recommending to de-escalate aspirin down to 81 mg daily; lipid profile is ordered and pending -Recommending to proceed with stress echo to assess cardiac structure and function Further recommendations after echocardiogram is completed Objective - Vital Signs Vital signs: Vital Signs Temp 97.7 F 02/04/24 10:12 Pulse 67 02/04/24 10:12 Resp 16 02/04/24 10:12 BP 104/72 02/04/24 10:12 Pulse Ox 97 02/04/24 10:12 FiO2 Intake & Output 02/03/24 02/04/24 02/04/24 18:59 06:59 18:59 Weight 95.254 kg 95.254 kg - Exam - Constitutional General appearance: Present: average body habitus, cooperative, no acute distress - EENT Eyes: Present: anicteric sclerae, EOMI, PERRLA, normal appearance ENT: Present: hearing grossly normal, normal oropharynx Ears: bilateral: normal - Neck Neck: Present: normal ROM. Absent: lymphadenopathy, rigidity, thyromegaly Carotids: negative: bruit present Thyroid: bilateral: normal size, negative: enlarged, nodule - Respiratory Respiratory: bilateral: CTA, negative: rales, rhonchi, wheezing - Cardiovascular Rhythm: regular Heart sounds: normal: S1, S2 Abnormal Heart Sounds: Absent: systolic murmur, diastolic murmur - Gastrointestinal General gastrointestinal: Present: normal bowel sounds, soft. Absent: distended, organomegaly, tenderness - Genitourinary Genitourinary Comment(s): deferred - Integumentary Integumentary: Present: normal turgor. Absent: jaundiced, rash, ulcer - Neurologic Neurologic: Present: CNII-XII intact. Absent: focal deficits - Musculoskeletal Musculoskeletal: Present: gait normal, strength equal bilaterally - Psychiatric Psychiatric: Present: A&O x's 3, appropriate affect, intact judgment & insight - Labs CBC & Chem 7: 02/03/24 14:36 02/03/24 14:36 Labs: Abnormal Lab Results - Last 24 Hours (Table) 02/03/24 02/04/24 Range/Units 14:36 05:47 Chloride 108 H (98-107) mmol/L BUN 21 H (9-20) mg/dL Triglycerides 487.00 H (0.00-149.00) mg/dL Cholesterol 217.00 H (0.00-200.00) mg/dL VLDL Cholesterol, Calc 97.40 H (5.00-40.00) mg/dL HDL Cholesterol 31.20 L (40.00-60.00) mg/dL Assessment and Plan Assessment: 1. Chest pain rule out acute coronary syndrome --Patient will be admitted to telemetry; monitor EKG and trend troponin -- Patient has been placed on aspirin 81 mg daily along with nitroglycerin paste 2. Hypertension; Zestril 10 mg daily 3. Obesity; patient educated on need for weight reduction DVT prophylaxis; SCDs CODE STATUS; full code
[2024-02-05] MEDS ORDERED: ATORVASTATIN 40 MG TAB PO SCH (21:00)
--- NOTE | 2024-02-06 06:07 | P.DS ---
Providers Date of admission: 02/03/24 16:24 Attending physician: Lulú Velez Consults: 02/03/24 16:24 Consult Physician Urgent Consulting Provider: Ismael Ulloa Consult Reason/Comments: Chest pain Do you want consulting provider notified?: Yes Primary care physician: Annalisa Clement [facility] Course: Diagnoses: Chest pain with negative D-dimer and negative stress echo, resolved and cleared by dispatcher service chief for discharge Dyslipidemia Hypertension Obesity with BMI of 31.9 Hospital course: 43-year-old male, history of hypertension, hyperlipidemia, TIA/CVA, COPD, osteoarthritis, present to the emergency department with concerns for chest discomfort. Onset was yesterday afternoon. Discomfort is rated 4-5/10. Discomfort feels like pressure. There is mild associated dyspnea. No nausea. No diaphoresis. No history of similar symptoms previously. Patient was sent over from urgent care. Blood work completed in ED reveals a WBC of 7.4, hemoglobin of 15.3 and platelet count of 194, PT 10.4 D-dimer of 0.37, sodium 138, potassium 4.1, BUNs/creatinine of 21/0.76, magnesium 1.9 troponin is less than 0.012 BNP less than 20 Chest x-ray is negative for any acute process EKG does not reveal any acute ST or T wave changes Patient was evaluated by cardiology team, he had a normal stress echo with normal treadmill test. Ejection fraction on echocardiogram was 55 to 60% D- dimer was negative at 0.37 Patient evaluated by dispatcher service chief and cleared for discharge Patient was feeling comfortable denies any other new complaint and is agreeable to go home today. Patient was instructed to come back to the hospital if he develops any signs symptoms and he verbalized understanding and acceptance Problems and management plan were discussed with the patient and he verbalized understanding and acceptance Patient was found stable and can be discharged home in guarded prognosis however he needs follow-up as an outpatient. Patient was instructed to follow up with PCP within one week and patient agrees Patient was instructed to follow-up with dispatcher service chief Dr. Cunha in 2 weeks after discharge and he is agreeable. Lipitor added upon discharge for dyslipidemia Physical exam Gen: patient is a AAOx3, no distress CVS: S1-S2, RRR, no murmur Lungs: B/L CTA, no wheezing Abdomen: soft, no distention, no tenderness, positive bowel sounds Extremity: no leg edema or induration Time spent more than 35 minutes Patient Condition at Discharge: Stable Plan - Discharge Summary New Discharge Prescriptions: New Atorvastatin [Lipitor] 40 mg PO HS #30 tab Continue lisinopriL [Zestril] 10 mg PO HS Discharge Medication List lisinopriL [Zestril] 10 mg PO HS 07/20/23 [History] Atorvastatin [Lipitor] 40 mg PO HS #30 tab 02/05/24 [Rx] Follow up Appointment(s)/Referral(s): Annalisa Clement MD [Primary Care Provider] - 1-2 days Ismael Ulloa MD [STAFF PHYSICIAN] - 2 Weeks Activity/Diet/Wound Care/Special Instructions: heart healthy diet activity is restricted till you see your doctor Discharge Disposition: HOME SELF-CARE
== END 2024-02-05 14:48 | disposition home or self-care (01) ==
LOC: EC 11:59 → 6NMEDSUR 16:24
PROVIDERS: ADMIT Internal Medicine; ATTEND Internal Medicine
DX: R07.89 Other chest pain (principal); R42 Dizziness and giddiness; E78.5 Hyperlipidemia, unspecified; I10 Essential (primary) hypertension; E66.9 Obesity, unspecified; Z68.31 Body mass index [BMI] 31.0-31.9, adult; J44.9 Chronic obstructive pulmonary disease, unspecified; Z86.73 Personal history of transient ischemic attack (TIA), and cerebral infarction without residual deficits; M19.90 Unspecified osteoarthritis, unspecified site; Z86.16 Personal history of COVID-19; Z79.899 Other long term (current) drug therapy
CPT/HCPCS: 99285; 36415; 93005 ×2; 93306; 93351; 85379; 83880; 80061; 80053; 83735; 84484; 85025; 85610; 85730; 83721; 71046; G0378 ×3

== ENCOUNTER → 2024-02-07 | Outpatient (CLI) | payer BC ==
--- NOTE | 2024-02-07 16:02 | CT ---
EXAMINATION TYPE: CT abdomen pelvis w con CT DLP: 1349.2 mGycm, Automated exposure control for dose reduction was used. DATE OF EXAM: 02/07/2024 2:43 PM COMPARISON: None rCLINICAL INDICATION:Male, 43 years old with history of R10.31 RIGHT LOWER QUADRANT PAIN; RLQ pain TECHNIQUE: Axial CT abdomen pelvis w con;Sagittal and coronal reformats were created on a separate w orkstation. Contrast used:100 mL of Isovue 300 with IV Contrast, (none if empty) Oral contrast used: with Oral Contrast (none if empty) FINDINGS: LOWER CHEST: Unremarkable ABDOMEN LIVER: Indeterminate hepatic lesion near the caudate lobe measuring 32 x 31 mm. Another indeterminate lesion is more inferiorly measuring 16 mm. GALLBLADDER AND BILE DUCTS: Unremarkable. PANCREAS: Unremarkable. SPLEEN: Small splenule is present. ADRENAL GLANDS: Unremarkable. KIDNEYS AND URETERS: No evidence of hydronephrosis or renal calculus. The ureters are unremarkable. PELVIS BLADDER: Unremarkable REPRODUCTIVE: Unremarkable. ABDOMEN & PELVIS STOMACH AND BOWEL: No evidence of bowel obstruction. Scattered colonic diverticula. The appendix is n ormal. PERITONEUM/RETROPERITONEUM: No evidence of pneumoperitoneum or free fluid. VASCULATURE: No evidence of aortic aneurysm. MUSCULOSKELETAL: No acute osseous abnormalities LYMPH NODES: No gross evidence for lymphadenopathy. SOFT TISSUE/ABDOMINAL WALL: Bilateral fat-containing inguinal hernias. IMPRESSION: 1. No acute quadrant process. No obstructive uropathy or renal calculus. The appendix is normal. 2. Indeterminate hepatic lesions. Further evaluation with liver mass protocol MRI recommended.
== END | disposition home or self-care (01) ==
LOC: RADCTMAIN 12:50
PROVIDERS: ATTEND Family Medicine
DX: R10.31 Right lower quadrant pain (principal); R16.0 Hepatomegaly, not elsewhere classified
CPT/HCPCS: 74177; Q9967

== ENCOUNTER → 2024-03-22 | Outpatient (CLI) | payer BC ==
--- NOTE | 2024-04-11 14:25 | MR ---
Site ID synapse default Patient Pan Naqvi W ID [id number] Age/Gender: 43Y, M Order # N/A Procedure MRI LIVER WO/W CONTRAST Date 03/22/2024 5:26:17 AM EXAMINATION TYPE: MR liver wo/w con DATE OF EXAM: 04/06/2024 2:54 PM INDICATION: Patient age: Male; 43 year old; Reason for study: Hepatomegaly, hepatic lesions COMPARISON: CT abdomen and pelvis 02/07/2024 TECHNIQUE: Multiplanar multi-sequence imaging was performed of the abdomen without and with IV contr ast. The patient was given 9 ccs of Gadavist intravenously and dynamic imaging was performed. Post IV contrast subtraction images were also submitted for review. FINDINGS: LOWER CHEST: No gross irregularity. ABDOMEN Liver: Somewhat lobulated 3.4 cm T2 hyperintense/T1 hypointense lesion within segment VIII and ELMER (s eries 701, image 40). Additional T2 hyperintense/T1 hypointense 2.0 cm lesion within segment V of the right hepatic lobe (series 701, image 28). Both these lesions demonstrate peripheral nodular discont inuous enhancement which progresses centripetally on delayed images. There is near-complete fill-in o f the 2 cm lesion on delayed imaging. No drop out of signal on out of phase imaging to suggest fatty infiltration. Noncirrhotic morphology. Enlarged liver measuring 18.1 cm in CC dimension. Gallbladder and Bile ducts: Unremarkable. Pancreas: Unremarkable. Spleen: Unremarkable. Adrenal glands: Unremarkable. Kidneys: No hydronephrosis. Right renal upper pole 6 mm nonenhancing simple cyst. Stomach and Bowel: Unremarkable as visualized. Peritoneum: No evidence of pneumoperitoneum, free fluid, or adenopathy. Vasculature: Unremarkable. No aortic aneurysm. Abdominal wall: Unremarkable. Musculoskeletal: The osseous structures appear intact. IMPRESSION: 1. There are 2 hepatic lesions with MRI enhancement characteristics consistent with benign hepatic h emangiomas. 2. Mild hepatomegaly.
== END | disposition home or self-care (01) ==
LOC: RADMRIMAIN 06:09
PROVIDERS: ATTEND Family Medicine
DX: R16.0 Hepatomegaly, not elsewhere classified (principal); K76.9 Liver disease, unspecified
CPT/HCPCS: 74183; A9585